=== PATIENT | female | born 1975 | race Caucasian/White ===

== ENCOUNTER → 2024-06-17 | Outpatient (CLI) | payer OTHER ==
[~2024-06-17] MED LIST: BACTRIM DS 8001 TA1 PO; HYDROCODONE BIT1 T11 PO
== END | disposition home or self-care (01) ==
LOC: MAMMO 10:55
PROVIDERS: ATTEND Nurse Practitioner Women's Health
DX: Z12.31 Encounter for screening mammogram for malignant neoplasm of breast (principal)